=== PATIENT | female | born 1980 | race Caucasian/White ===

== ENCOUNTER → 2019-12-03 | Outpatient (CLI) | payer OTHER ==
[2019-12-03 14:03] LABS: BASOPHILS # (AUTO) 0.03 x10^3/uL (0-0.1); BASOPHILS % (AUTO) 0 % (0-1); EOSINOPHILS # (AUTO) 0.09 x10^3/uL (0-0.4); EOSINOPHILS % (AUTO) 1 % (1-7); LYMPHOCYTES # (AUTO) 2.58 x10^3/uL (1-3.4); LYMPHOCYTES % (AUTO) 15 % (22-44); MD NO; MEAN CORPUSCULAR HEMOGLOBIN 30.1 pg (27.0-34.8); MEAN CORPUSCULAR HGB CONC 33.6 g/dL (32.4-35.8); MEAN CORPUSCULAR VOLUME 89.7 fL (80-100); MEAN PLATELET VOLUME 9.1 fL (7.4-10.4); MONOCYTES # (AUTO) 0.47 x10^3/uL (0.2-0.8); MONOCYTES % (AUTO) 3 % (2-9); NEUTROPHILS # (AUTO) 13.68 x10^3/uL (1.8-6.8); NEUTROPHILS % (AUTO) 81 % (42-75); PLATELET COUNT 325 x10^3/uL (130-400); RED BLOOD COUNT 4.47 x10^6/uL (3.82-5.3); RED CELL DISTRIBUTION WIDTH 14.5 % (9.6-15.2)
[2019-12-03 14:20] LABS: FREE T4 (FREE THYROXINE) 1.08 ng/dL (0.76-1.46)
== END | disposition home or self-care (01) ==
LOC: LAB 13:21
PROVIDERS: ATTEND Obstetrics & Gynecology
DX: O09.521 Supervision of elderly multigravida, first trimester (principal); Z3A.00 Weeks of gestation of pregnancy not specified
CPT/HCPCS: 36415; 81420; 82306; 84439; 84443; 85025; 86592; 86762; 86850; 86900; 87086; 87340; 87806; G0475

== ENCOUNTER → 2020-01-27 | Outpatient (CLI) | payer OTHER | END | disposition home or self-care (01) | LOC: LAB 15:11 | PROVIDERS: ATTEND Nurse Practitioner | DX: O09.92 Supervision of high risk pregnancy, unspecified, second trimester (principal); Z3A.18 18 weeks gestation of pregnancy | CPT/HCPCS: 36415; 82105 ==

== ENCOUNTER 2020-03-31 03:26 | Emergency (ER) | payer OTHER ==
[~2020-03-31] VITALS: Ht 152.4 cm; Wt 107.1 kg
[2020-03-31 03:32] VITALS: BP 166/87
[2020-03-31] MEDS ORDERED: CETI10TA76 PO (03:41)
[2020-03-31] MEDS ORDERED: LEVO88TA4 PO (03:41)
[2020-03-31] MEDS ORDERED: PNV1TAB.5 PO (03:41)
--- NOTE | 2020-03-31 03:43 | NUR ---
[facility]: L&D CALLED TO INFORM THEM OF PT. IN ED THAT IS 27 WEEKS . NO ABDOMINAL COMPLAINTS; WILL SEE PT. IN ED AND CALL L&D IF NEEDED.
--- NOTE | 2020-03-31 04:10 | NUR ---
39 year old female to ED for upper back/ neck pain that radiates to her bilateral shoulders and head. She denies fever, chills, nausea, vomiting, diaphoresis. She does state she had Covid-19 but has recovered. She also is 28 weeks pregnent, G2, P1, (LMP 3/3) with last [employer] assistant appt today. She states she feels the baby's movement.
[2020-03-31] MEDS ORDERED: LIDODERM 5% PATCH TD ONE ×2 (04:55→05:00)
== END 2020-03-31 06:03 | disposition home or self-care (01) ==
LOC: ED 05:31
DX: O26.893 Other specified pregnancy related conditions, third trimester (principal); S29.019A Strain of muscle and tendon of unspecified wall of thorax, initial encounter; S16.1XXA Strain of muscle, fascia and tendon at neck level, initial encounter; Z3A.27 27 weeks gestation of pregnancy; X58.XXXA Exposure to other specified factors, initial encounter; Y93.89 Activity, other specified; Y92.89 Other specified places as the place of occurrence of the external cause; Y99.8 Other external cause status
CPT/HCPCS: 93005; 99283

== ENCOUNTER → 2020-04-06 | Outpatient (CLI) | payer OTHER ==
[~2020-04-06] MED LIST: CETI10TA76 PO; LEVO88TA4 PO; PNV1TAB.5 PO
== END | disposition home or self-care (01) ==
LOC: LAB 14:08
PROVIDERS: ATTEND Obstetrics & Gynecology
DX: O09.92 Supervision of high risk pregnancy, unspecified, second trimester (principal); Z3A.00 Weeks of gestation of pregnancy not specified
CPT/HCPCS: 36415; 82950

== ENCOUNTER → 2020-04-26 | Outpatient (CLI) | payer OTHER | END | disposition home or self-care (01) | LOC: CVU 06:28 | PROVIDERS: ATTEND Nurse Practitioner Family | DX: O98.513 Other viral diseases complicating pregnancy, third trimester (principal); U07.1 COVID-19; I34.0 Nonrheumatic mitral (valve) insufficiency; Z3A.21 21 weeks gestation of pregnancy | CPT/HCPCS: 93306 ==

== ENCOUNTER 2020-04-27 23:22 | Outpatient (CLI) | payer OTHER ==
[~2020-04-27] VITALS: Ht 152.4 cm; Wt 105.9 kg
[2020-04-28 00:14] VITALS: BP 132/67
== END 2020-04-28 00:57 | disposition home or self-care (01) ==
LOC: LDOP 23:22
PROVIDERS: ATTEND Obstetrics & Gynecology
DX: O09.93 Supervision of high risk pregnancy, unspecified, third trimester (principal); O36.8130 Decreased fetal movements, third trimester, not applicable or unspecified; Z3A.31 31 weeks gestation of pregnancy
CPT/HCPCS: 59025

== ENCOUNTER 2020-06-18 16:11 | Outpatient (CLI) | payer OTHER | END 2020-06-18 16:50 | disposition home or self-care (01) | LOC: LDOP 16:11 | PROVIDERS: ATTEND Obstetrics & Gynecology | DX: O09.893 Supervision of other high risk pregnancies, third trimester (principal); O09.523 Supervision of elderly multigravida, third trimester; Z3A.38 38 weeks gestation of pregnancy | CPT/HCPCS: 59025 ==

== ENCOUNTER 2020-06-24 10:06 | Inpatient (IN) | payer OTHER ==
[~2020-06-24] VITALS: Ht 152.4 cm; Wt 112.2 kg
[2020-06-24] MEDS ORDERED: SODIUM CITRATE/CITRIC ACID 15 ML UDC ONE (10:23)
[2020-06-24] MEDS ORDERED: NEWBORN KIT ONE ×2 (10:23→13:01)
[2020-06-24] MEDS ORDERED: OXYTOCIN 30U/ 0.9% NaCL 500ML 500 ML ONE (10:23)
[2020-06-24] MEDS ORDERED: METOCLOPRAMIDE 5 MG/ML, 2ML ONE (10:23)
[2020-06-24 10:30] VITALS: BP 145/73
[2020-06-24] MEDS ORDERED: SODIUM CITRATE/CITRIC ACID 30 ML UDC PO ONE (10:30)
[2020-06-24] MEDS ORDERED: METOCLOPRAMIDE 5 MG/ML, 2ML IV ONE (10:30)
[2020-06-24] MEDS ORDERED: ONDANSETRON 2MG/ML, 2ML IVPush ONE (10:30)
[2020-06-24] MEDS ORDERED: LACTATED RINGERS 1,000 ML IVBOLUS ONE (10:30)
[2020-06-24] MEDS: PLEASE ENTER HEIGHT AND WEIGHT MC SCH ×2 (10:30→18:30)
[2020-06-24] MEDS ORDERED: LACTATED RINGERS 1,000 ML IV SCH (10:30)
[2020-06-24 10:56] LABS: BASOPHILS % (AUTO) 1 % (0-1); EOSINOPHILS % (AUTO) 2 % (1-7); LYMPHOCYTES % (AUTO) 13 % (22-44); MEAN CORPUSCULAR HGB CONC 33.4 g/dL (32.4-35.8); MEAN PLATELET VOLUME 9.6 fL (7.4-10.4); MONOCYTES % (AUTO) 6 % (2-9); NEUTROPHILS % (AUTO) 79 % (42-75); PLATELET COUNT 266 x10^3/uL (130-400); RED BLOOD COUNT 4.58 x10^6/uL (3.82-5.3); RED CELL DISTRIBUTION WIDTH 14.3 % (9.6-15.2)
[2020-06-24 11:08] LABS: MD NO
[2020-06-24] MEDS ORDERED: FENTANYL PF 100 MCG/2ML ONE (11:33)
[2020-06-24] MEDS ORDERED: CEFAZOLIN 1,000 MG ONE ×2 (11:40)
[2020-06-24] MEDS ORDERED: OXYTOCIN 10 UNITS/ML, 1ML ONE ×4 (11:40)
[2020-06-24] MEDS ORDERED: KETOROLAC 30 MG/1 ML ONE (11:43)
[2020-06-24] MEDS ORDERED: ONDANSETRON 2MG/ML, 2ML IV PRN (12:30)
[2020-06-24] MEDS: LACTATED RINGERS 1,000 ML IV SCH ×4 (12:30→22:30)
[2020-06-24] MEDS ORDERED: MISOPROSTOL 200 MCG TABLET SL PRN (12:30)
[2020-06-24] MEDS ORDERED: SIMETHICONE 80 MG CHEW TAB PO PRN (12:30)
[2020-06-24] MEDS ORDERED: MORPHINE SULFATE 4 MG/ML, 1ML IVPush PRN (12:30)
[2020-06-24] MEDS ORDERED: METOCLOPRAMIDE 5 MG/ML, 2ML IV PRN (12:30)
[2020-06-24] MEDS: KETOROLAC 30 MG/1 ML IV SCH ×2 (12:30→18:26)
[2020-06-24] MEDS ORDERED: CALCIUM CARBONATE 500 MG TAB.CHEW PO PRN (12:30)
[2020-06-24] MEDS ORDERED: METHYLERGONOVINE 0.2 MG/ML IM PRN (12:30)
[2020-06-24] MEDS ORDERED: OXYcodone IR 5MG TABLET PO PRN (12:30)
[2020-06-24] MEDS ORDERED: IBUPROFEN 200 MG TABLET PO PRN (12:30)
[2020-06-24] MEDS ORDERED: DIPH,PERTUSS(ACELL),TET VAC/PF NC IM-VACC PRN (12:30)
[2020-06-24] MEDS ORDERED: IBUPROFEN 800 MG TABLET PO PRN (12:30)
[2020-06-24] MEDS ORDERED: EPHEDRINE 50 MG/ML, 1ML ONE (12:35)
[2020-06-24] MEDS ORDERED: LIDOCAINE-MPF 2% ,5ML ONE (12:37)
[2020-06-24] MEDS ORDERED: DIPHENHYDRAMINE 50 MG/ML, 1ML IVPush PRN (13:30)
[2020-06-24] MEDS ORDERED: ONDANSETRON 2MG/ML, 2ML IVPush PRN (13:30)
[2020-06-24] MEDS ORDERED: LABETALOL 5MG/ML, 20ML IV PRN (13:30)
[2020-06-24] MEDS ORDERED: morphine SULFATE 10 MG/ML, 1ML IVPush PRN (13:30)
[2020-06-24] MEDS ORDERED: PROMETHAZINE 25 MG/ML, 1ML IVPush PRN (13:30)
[2020-06-24] MEDS ORDERED: OXYcodone 5 MG/5 ML ORAL.SOL UDC PO PRN (13:30)
[2020-06-24] MEDS ORDERED: ALBUTEROL SULFATE 2.5 MG/3 ML NPPB PRN (13:30)
[2020-06-24] MEDS ORDERED: FENTANYL PF 100 MCG/2ML IV PRN (13:30)
[2020-06-24] MEDS: OXYTOCIN 30U/ 0.9% NaCL 500ML 500 ML IV SCH ×2 (14:35→22:30)
[2020-06-24 16:00] VITALS: BP 132/74
[2020-06-24 20:10] VITALS: BP 113/59
[2020-06-24] MEDS: ACETAMINOPHEN 325 MG TABLET PO PRN (20:56)
[2020-06-24] MEDS: DOCUSATE 100 MG CAPSULE PO SCH (20:57)
[2020-06-24 21:18] LABS: BASOPHILS % (AUTO) 1 % (0-1); EOSINOPHILS % (AUTO) 1 % (1-7); LYMPHOCYTES % (AUTO) 13 % (22-44); MEAN CORPUSCULAR HEMOGLOBIN 30.7 pg (27.0-34.8); MEAN CORPUSCULAR HGB CONC 34.2 g/dL (32.4-35.8); MONOCYTES % (AUTO) 5 % (2-9); NEUTROPHILS % (AUTO) 80 % (42-75); PLATELET COUNT 227 x10^3/uL (130-400); RED BLOOD COUNT 3.82 x10^6/uL (3.82-5.3); RED CELL DISTRIBUTION WIDTH 14.1 % (9.6-15.2)
[2020-06-24 21:27] LABS: MD NO
[2020-06-24] MEDS: OXYcodone IR 5MG TABLET PO PRN (22:11)
[2020-06-25] MEDS: KETOROLAC 30 MG/1 ML IV SCH ×4 (00:29→19:02)
[2020-06-25 00:30] VITALS: BP 126/76
[2020-06-25] MEDS: OXYcodone IR 5MG TABLET PO PRN ×3 (02:17→15:48)
[2020-06-25] MEDS: PLEASE ENTER HEIGHT AND WEIGHT MC SCH (02:30)
[2020-06-25 04:20] VITALS: BP 115/66
[2020-06-25] MEDS: LACTATED RINGERS 1,000 ML IV SCH ×3 (04:30→12:30)
[2020-06-25] MEDS: ACETAMINOPHEN 325 MG TABLET PO PRN ×4 (04:52→16:31)
[2020-06-25] MEDS: OXYTOCIN 30U/ 0.9% NaCL 500ML 500 ML IV SCH (08:30)
[2020-06-25] MEDS: DOCUSATE 100 MG CAPSULE PO SCH ×2 (08:41→20:50)
[2020-06-25] MEDS: PRENATAL VIT/IRON/FA 1 EACH TABLET PO SCH (08:42)
[2020-06-25 08:50] VITALS: BP 121/73
[2020-06-25] MEDS ORDERED: HYDROcodone/APAP 5/325 TABLET PO PRN (18:00)
[2020-06-25 20:45] VITALS: BP 129/73
[2020-06-25] MEDS: HYDROcodone/APAP 5/325 TABLET PO PRN (20:50)
[2020-06-26] MEDS: KETOROLAC 30 MG/1 ML IV SCH ×2 (01:04→06:30)
[2020-06-26] MEDS: HYDROcodone/APAP 5/325 TABLET PO PRN ×3 (01:04→10:04)
[2020-06-26 07:40] VITALS: BP 124/65
[2020-06-26] MEDS: DOCUSATE 100 MG CAPSULE PO SCH (07:56)
[2020-06-26] MEDS ORDERED: IBUPROFEN 600 MG TABLET PO PRN (08:00)
[2020-06-26] MEDS: PRENATAL VIT/IRON/FA 1 EACH TABLET PO SCH (09:00)
[2020-06-26] MEDS ORDERED: IBUP-1222 PO (11:50)
[2020-06-26] MEDS ORDERED: HYDR-3240 PO (11:51)
[2020-06-26] MEDS ORDERED: DOCU-131 PO (11:51)
== END 2020-06-26 12:15 | disposition home or self-care (01) | DRG 785 ==
LOC: LDIP 10:06 → 2NW 15:30
PROVIDERS: ADMIT Obstetrics & Gynecology; ATTEND Obstetrics & Gynecology
PROC: 10D00Z1 Extraction of Products of Conception, Low, Open Approach (ICD-10-PCS; principal; 2020-06-24)
PROC: 0UB70ZZ Excision of Bilateral Fallopian Tubes, Open Approach (ICD-10-PCS; 2020-06-24)
DX: O99.214 Obesity complicating childbirth (principal); E66.9 Obesity, unspecified; O34.211 Maternal care for low transverse scar from previous cesarean delivery; O99.284 Endocrine, nutritional and metabolic diseases complicating childbirth; Z20.828 Contact with and (suspected) exposure to other viral communicable diseases; E06.3 Autoimmune thyroiditis; Z30.2 Encounter for sterilization; Z37.0 Single live birth; Z3A.39 39 weeks gestation of pregnancy; Z79.890 Hormone replacement therapy
CPT/HCPCS: 36415; J3490; 85025; 86592; 86850; 86900; 87635; 88302; G0378; J0690; J1885; J2405; J3010; J2590; J2765; J7120